=== PATIENT | male | born 1970 | race Caucasian/White ===

== ENCOUNTER 2018-02-21 15:51 | Emergency (ER) | payer SELFPAY ==
--- NOTE | 2018-02-21 16:08 | Emergency Department Report ---
HPI - General Time Seen by Provider: 02/21/18 16:00 - HPI HPI: Room 19 The patient is a 47-year-old male presenting with a chief complaint of unresponsiveness. EMS originally received a call for cardiac arrest but upon their arrival they found the patient having seizure-like activity and was then unresponsive. EMS states there was a language barrier or family stated the patient began stating that he could not breathe and then went unresponsive. There is currently no family present. Patient was brought in by EMS grossly obtunded with OPA in place and being bagged via BVM. The decision was made to intubate the patient immediately prior to CT at that time Update 16:24- the patient's mother is here in the ED and states that the patient was helping to fix a toilet when he began complaining of dizziness. Apparently went to get him water to drink because of his dizziness when he began complaining that he needed "air." The patient was unresponsive and had a seizure. The mother states that the patient's girlfriend mentioned the patient didn't feel well last night but did not give any specifics Location: [See above] Duration: [See above] Quality: [See above] Severity: Severe Modifying factors: [see above] Context: [see above] Mode of transportation: [not driving] ED Past Medical Hx - Surgical History Additional Surgical History: Right AKA - Social History Smoking Status: Never Smoker Substance Use Type: Alcohol - Medications Home Medications: Home Medications Medication Instructions Recorded Confirmed Last Taken Type No Known Home Medications [No 08/07/14 08/07/14 Unknown History Reported Home Medications] ED Review of Systems ROS: Stated complaint: POSS CVA Other details as noted in HPI Comment: Unobtainable due to pts medical conditions Physical Exam - Physical Exam Physical Exam: GENERAL: The patient is well-developed well-nourished male lying on stretcher with opiate in place being bagged via BVM. And responsive HEENT: Normocephalic. Atraumatic. Left pupil 3 mm and unreactive. Right pupil 2 mm and unreactive NECK: Supple. Trachea midline CHEST/LUNGS: Clear to auscultation. There is no respiratory distress noted. HEART/CARDIOVASCULAR: Regular. There is no tachycardia. There is no gallop rub or murmur. ABDOMEN: Abdomen is soft, nontender. Patient has normal bowel sounds. There is no abdominal distention. SKIN: There is no rash. There is no edema. There is no diaphoresis. NEURO: GCS 3 MUSCULOSKELETAL: There is no evidence of acute injury. ED Course - Reevaluation(s) Reevaluation #1: 02/21/18 17:55 BP improved to 106 systolic. Awaiting transport - Consultations Consultation #1: 02/21/18 16:43 [facility] transfer line called 02/21/18 16:49 Case discussed with [facility] transfer line. Awaiting call back 02/21/18 17:00 Case discussed with [facility] neurointensivist Dr Abel- will accept patient in transfer. - Intubation Time Out Performed: No Sedative: Versed Mg Given: 5 Paralytic: Succinylcholine Mg Given: 100 Laryngoscope: Raine Size: 3 ET Tube Size: 8 Tube Secured Depth (cm): 24 Tube Secured Location: lips Tube Placement Confirmation: visualized tube passing t, equal breath sounds bilat, no breath sounds over epi, confirmation by capnometr Patient Tolerated Procedure: no complications Intubation Complications: none ED Medical Decision Making - Lab Data Result diagrams: 02/21/18 15:55 Laboratory Tests 02/21/18 02/21/18 02/21/18 15:55 16:05 16:07 WBC 17.1 H RBC 5.86 H Hgb 17.1 H Hct 53.8 H MCV 92 MCH 29 MCHC 32 RDW 14.1 Plt Count 255 Lymph # [employer] PT 14.0 INR 1.03 APTT 29.2 POC ABG pH POC ABG pCO2 POC ABG pO2 POC ABG HCO3 POC ABG Total CO2 POC ABG O2 Sat POC ABG Base Excess FiO2 Sodium Potassium Chloride Carbon Dioxide Anion Gap BUN Creatinine Estimated GFR BUN/Creatinine Ratio Glucose Calcium Total Bilirubin AST ALT Alkaline Phosphatase Total Creatine Kinase CK-MB (CK-2) CK-MB (CK-2) Rel Index Troponin T NT-Pro-B Natriuret Pep Total Protein Albumin Albumin/Globulin Ratio Blood Type O POSITIVE Antibody Screen Negative 02/21/18 02/21/18 02/21/18 16:07 16:07 16:41 WBC RBC Hgb Hct MCV MCH MCHC RDW Plt Count Lymph # PT INR APTT POC ABG pH 7.177 L POC ABG pCO2 69.3 H POC ABG pO2 158 H POC ABG HCO3 25.7 POC ABG Total CO2 28 POC ABG O2 Sat 99 POC ABG Base Excess -3 FiO2 100 Sodium 141 Potassium 3.3 L Chloride 98.4 Carbon Dioxide 22 Anion Gap 24 BUN 13 Creatinine 1.1 Estimated GFR > 60 BUN/Creatinine Ratio 12 Glucose 174 H Calcium 8.5 Total Bilirubin 0.40 AST 57 H ALT 57 H Alkaline Phosphatase 97 Total Creatine Kinase 121 CK-MB (CK-2) 4.1 H CK-MB (CK-2) Rel Index 3.3 Troponin T 0.016 NT-Pro-B Natriuret Pep 1085 H Total Protein 7.4 Albumin 3.5 L Albumin/Globulin Ratio 0.9 Blood Type Antibody Screen - EKG Data -: EKG Interpreted by Me EKG shows normal: sinus rhythm Rate: normal - EKG Data When compared to previous EKG there are: previous EKG unavailable Interpretation: subendocardial ischemia (ST depression in leads 2, 1, V4, V5, V6.) - Radiology Data Radiology results: report reviewed (CT head (discussed with radiologist)), image reviewed (CT head, chest x-ray) interpreted by me: Chest x-ray-ET tube in place. No pneumothorax - Differential Diagnosis ACS, ICH, PE, dysrhythmia, pneumothorax, pneumonia Critical Care Time: Yes Critical care time in (mins) excluding proc time.: 30 Critical care attestation.: If time is entered above; I have spent that time in minutes in the direct care of this critically ill patient, excluding procedure time. ED Disposition Clinical Impression: Intracranial hemorrhage Disposition: DC/TX-70 ANOTHER TYPE HLTHCARE Is pt being admited?: No Does the pt Need Aspirin: No Condition: Serious Referrals: PRIMARY CARE, [Primary Care Provider] - 3-5 Days Time of Disposition: 17:55 (awaiting transport)
[2018-02-21] MEDS ORDERED: KEPPRA 1,000 MG/NS 0.75% 100ML 1,000 MG/100 ML BAG IV ONE (16:18)
[2018-02-21 16:33] LABS: Hematocrit 53.8 % (35.5-45.6); Hemoglobin 17.1 gm/dl (11.8-15.2); Mean Corpuscular HGB Conc 32 % (32-34); Mean Corpuscular Hemoglobin 29 pg (28-32); Mean Corpuscular Volume 92 fl (84-94); Platelet Count 255 K/mm3 (140-440); Red Blood Count 5.86 M/mm3 (3.65-5.03); Red Cell Distribution Width 14.1 % (13.2-15.2)
[2018-02-21] MEDS ORDERED: NACL 0.9% 1000 ML 1,000 ML ONE (16:40)
[2018-02-21 16:44] LABS: INR 1.03 (0.87-1.13)
[2018-02-21 16:45] LABS: Partial Thromboplastin Time 29.2 Sec. (24.2-36.6)
--- NOTE | 2018-02-21 16:51 | Cat Scan Report ---
FINAL REPORT EXAM: CT HEAD/BRAIN WO CON HISTORY: unresponsive TECHNIQUE: Noncontrast CT axial images of the brain. PRIORS: None. FINDINGS: Somewhat lobular, parenchymal hemorrhage or hematoma noted primarily in the midbrain and pontine region measuring approximately 2.8 x 2.1 cm in maximal cross-sectional diameter. Extra-axial, probable subarachnoid blood also noted in the interpeduncular and left prepontine cistern partially surrounding and distorting basilar artery. Some subarachnoid hemorrhagic component also noted tracking into 3rd, as well as 4th ventricle. Basilar cisterns partially effaced. No apparent parenchymal mass, midline shift or hydrocephalus. No evidence of acute cortical infarct. No abnormal, extra-axial fluid or air collection. Probable old lacunar infarct changes in the right thalamus region. Osseous calvarium grossly intact. IMPRESSION: 1. Intra-axial parenchymal hemorrhage or hematoma centered in the midbrain and pontine region may be secondary to hypertensive etiology, but nonspecific. Small, extra-axial or subarachnoid hemorrhagic component in the basilar cisterns, 3rd and 4th ventricles, with associated mass effect, as reported. Dr. Lux discussed results with Dr. Warren on 21 February 2018 at approximately 1636 hours EST.
[2018-02-21] MEDS ORDERED: NACL 0.9% 1000 ML 1,000 ML IV ONE ×2 (17:00→17:01)
[2018-02-21 17:13] LABS: Albumin 3.5 g/dL (3.9-5); BUN/Creatinine Ratio 12; Blood Urea Nitrogen 13 mg/dL (9-20); Calcium 8.5 mg/dL (8.4-10.2); Creatine Kinase MB 4.1 ng/mL (0.0-4.0); Hemolysis Index 116
--- NOTE | 2018-02-21 17:36 | XRay Report ---
FINAL REPORT EXAM: XR CHEST 1V AP HISTORY: unresponsive TECHNIQUE: Single, portable chest x-ray. PRIORS: None. FINDINGS: ET tube tip projects approximately 2.5 cm above the davide. Cardiac and mediastinal silhouette within normal limits. Lungs mildly hypoinflated, with probable vascular crowding or atelectatic change centrally. No focal consolidation or apparent pneumothorax. IMPRESSION: 1. ET tube position as reported. 2. Hypoinflation. No acute consolidation.
[2018-02-21 17:48] LABS: Alanine Aminotransferase 57 units/L (7-56)
[2018-02-21 17:54] LABS: Total Cells Counted 100
[2018-02-21 17:55] LABS: Platelet Estimate Consistent w Auto; RBC Morphology Normal
[2018-02-21 19:47] VITALS: BP 135/73
[2018-02-21] MEDS ORDERED: QUELICIN ONE (23:09)
[2018-02-21] MEDS ORDERED: XYLOCAINE CARDIAC IV ONE (23:09)
[2018-02-21] MEDS ORDERED: VERSED IV ONE (23:09)
== END 2018-02-21 19:30 | disposition other institution (70) ==
LOC: ED 15:51
DX: I62.9 Nontraumatic intracranial hemorrhage, unspecified (principal)
CPT/HCPCS: 31500; 36415; 70450; 71045; 80053; 82550; 82553; 82803; 83880; 84484; 85007; 85025; 85610; 85730; 86850; 86900; 86901; 93005; 93010; 96365; 99291; J0330; J1953; J2001; J2250; J7030; 94002